=== PATIENT | male | born 1945 | race Caucasian/White ===

== ENCOUNTER 2019-01-25 15:27 | Inpatient (IN) | payer MEDICARE, BC ==
[2019-01-25 17:52] LABS: ADD MAN DIFF? NO
[2019-01-25 17:53] LABS: WHITE BLOOD COUNT 7.2 10^3/ul (4.8-10.8)
[2019-01-25 17:53] LABS: ABNORMAL IP MESSAGE 1; BASOPHILS % 0.1 % (0.0-2.0); EOSINOPHILS % 0.1 % (0.0-7.0); HEMATOCRIT 43.5 % (42.0-52.0); HEMOGLOBIN 14.2 g/dl (14.0-18.0); LYMPHOCYTES # 0.2 10^3/ul (0.8-2.9); LYMPHOCYTES % 3.3 % (15.0-51.0); MEAN CORPUSCULAR HGB CONC 32.6 g/dl (32.0-37.0); MONOCYTE # 0.3 10^3/ul (0.3-0.9); MONOCYTES % 3.6 % (0.0-11.0); NEUTROPHIL # 6.7 10^3/ul (1.6-7.5); NEUTROPHILS % 92.6 % (39.0-77.0); PLATELET COUNT 170 10^3/UL (140-415); RED BLOOD COUNT 4.89 10^6/ul (4.70-6.10); RED CELL DISTRIBUTION WIDTH 13.2 % (11.5-14.5)
[2019-01-25] MEDS: SOD CHLORIDE 0.9% 1,000 ML IV ×2 (17:54→23:34)
[2019-01-25] MEDS: ONDANSETRON 4 MG INJ IV (17:54)
[2019-01-25] MEDS: KETOROLAC 15 MG INJ IV (17:54)
[2019-01-25 18:01] LABS: ALANINE AMINOTRANSFERASE 16 IU/L (13-69); ALBUMIN 3.9 g/dl (3.3-4.9); ALBUMIN/GLOBULIN RATIO 1.39; ALKALINE PHOSPHATASE 49 IU/L (42-121); ANION GAP 8 (5-13); ASPARTATE AMINO TRANSFERASE 31 IU/L (15-46); BILIRUBIN,INDIRECT 0.8 mg/dl (0-1.1); BILIRUBIN,TOTAL 0.8 mg/dl (0.2-1.3); BLOOD UREA NITROGEN 22 mg/dl (7-20); CALCIUM 8.9 mg/dl (8.4-10.2); CARBON DIOXIDE 24 mmol/L (21-31); CHLORIDE 110 mmol/L (97-110); CREATININE 1.64 mg/dl (0.61-1.24); GLUCOSE 125 mg/dl (70-220); LIPASE 54 U/L (23-300); POTASSIUM 4.7 mmol/L (3.5-5.1); SODIUM 142 mmol/L (135-144); TOTAL PROTEIN 6.7 g/dl (6.1-8.1)
[2019-01-25] MEDS: CEFTRIAXONE 1 GM/50 ML (PMX) 50 ML IVPB (20:37)
[2019-01-25 20:48] LABS: ADD UMIC YES; UR ASCORBIC ACID NEGATIVE (NEGATIVE); UR BILIRUBIN (Dip) NEGATIVE (NEGATIVE); UR BLOOD (Dip) 3+ mg/dL (NEGATIVE); UR CLARITY SLIGHTLY CLOUDY (CLEAR); UR COLOR YELLOW (YELLOW); UR GLUCOSE (Dip) NEGATIVE (NEGATIVE); UR KETONES (Dip) TRACE mg/dL (NEGATIVE); UR LEUKOCYTE ESTERASE (Dip) NEGATIVE Leu/ul (NEGATIVE); UR MUCUS FEW /HPF (NONE SEEN); UR NITRITE (Dip) NEGATIVE (NEGATIVE); UR RBC > 182 /HPF (0-5); UR TOTAL PROTEIN (Dip) NEGATIVE (NEGATIVE); UR UROBILINOGEN (Dip) NEGATIVE (NEGATIVE); UR WBC 2 /HPF (0-5)
[2019-01-25] MEDS ORDERED: ONDANSETRON 4 MG INJ IV ×2 (21:00→22:30)
[2019-01-25] MEDS ORDERED: ACETAMINOPHEN 325 MG TAB PO ×2 (21:00→22:30)
[2019-01-25] MEDS ORDERED: ALBUTEROL/IPRATROPIUM (NEB) 3 ML AMP HHN (22:30)
[2019-01-25] MEDS ORDERED: NACL 0.9% 3 ML SYG IV (22:30)
[2019-01-25] MEDS: TAMSULOSIN (SR) 0.4 MG CAP PO (23:34)
[2019-01-26 00:30] LABS: INR 1.02; PARTIAL THROMBOPLASTIN TIME 24.7 Sec (23.0-35.0); PROTIME 13.5 Sec (11.9-14.9); PT RATIO 1.1
[2019-01-26 00:57] LABS: PROSTATE SPECIFIC ANTIGEN 1.1 ng/ml (0.0-4.0)
[2019-01-26 06:26] LABS: ADD MAN DIFF? NO
[2019-01-26 06:30] LABS: WHITE BLOOD COUNT 4.6 10^3/ul (4.8-10.8)
[2019-01-26 06:30] LABS: BASOPHILS % 0.2 % (0.0-2.0); EOSINOPHILS % 0.9 % (0.0-7.0); HEMATOCRIT 36.5 % (42.0-52.0); HEMOGLOBIN 11.9 g/dl (14.0-18.0); LYMPHOCYTES # 0.9 10^3/ul (0.8-2.9); LYMPHOCYTES % 20.1 % (15.0-51.0); MEAN CORPUSCULAR HEMOGLOBIN 28.8 pg (29.0-33.0); MEAN CORPUSCULAR HGB CONC 32.6 g/dl (32.0-37.0); MEAN CORPUSCULAR VOLUME 88.4 fl (82.0-101.0); MEAN PLATELET VOLUME 11.3 fl (7.4-10.4); MONOCYTE # 0.5 10^3/ul (0.3-0.9); MONOCYTES % 9.8 % (0.0-11.0); NEUTROPHIL # 3.1 10^3/ul (1.6-7.5); NEUTROPHILS % 68.6 % (39.0-77.0); PLATELET COUNT 154 10^3/UL (140-415); RED BLOOD COUNT 4.13 10^6/ul (4.70-6.10); RED CELL DISTRIBUTION WIDTH 13.4 % (11.5-14.5)
[2019-01-26 07:04] LABS: ALANINE AMINOTRANSFERASE 17 IU/L (13-69); ALBUMIN 2.8 g/dl (3.3-4.9); ALBUMIN/GLOBULIN RATIO 1.27; ALKALINE PHOSPHATASE 31 IU/L (42-121); ANION GAP 5 (5-13); ASPARTATE AMINO TRANSFERASE 13 IU/L (15-46); BLOOD UREA NITROGEN 24 mg/dl (7-20); CARBON DIOXIDE 25 mmol/L (21-31); CHLORIDE 112 mmol/L (97-110); CREATININE 1.82 mg/dl (0.61-1.24); GLUCOSE 91 mg/dl (70-220); MAGNESIUM 1.9 mg/dl (1.7-2.5); PHOSPHORUS 4.1 mg/dl (2.5-4.9); POTASSIUM 4.6 mmol/L (3.5-5.1); SODIUM 142 mmol/L (135-144)
[2019-01-26 07:35] LABS: CARCINOEMBRYONIC ANTIGEN 0.4 ng/ml (0.0-5.0)
[2019-01-26 07:39] LABS: ALPHA FETOPROTEIN 5.99 IU/L (0.00-7.21)
[2019-01-26] MEDS: HEPARIN 5,000 UNIT/1 ML VIAL SC ×2 (08:29→22:18)
[2019-01-26] MEDS: CEFTRIAXONE 1 GM/50 ML (PMX) 50 ML IVPB (08:45)
[2019-01-26] MEDS: SOD CHLORIDE 0.9% 1,000 ML IV ×2 (08:45→18:05)
[2019-01-26] MEDS ORDERED: IOHEXOL 300MG/ML 30 ML BTL (19:02)
[2019-01-26] MEDS ORDERED: EPHEDrine 25 MG/5 ML SYG (19:30)
[2019-01-26] MEDS ORDERED: LIDOCAINE 2% (SDV) 5 ML INJ (19:32)
[2019-01-26] MEDS ORDERED: PROPOFOL 20 ML (19:32)
[2019-01-26] MEDS ORDERED: MIDAZOLAM 1 MG/ML 2 ML INJ (19:33)
[2019-01-26] MEDS ORDERED: FENTAnyl 50 MCG/ML VIAL (19:33)
[2019-01-26] MEDS ORDERED: CEFAZOLIN 1 GM INJ (19:42)
[2019-01-26] MEDS ORDERED: DEXAMETHASONE 4 MG/ML 5 ML INJ (19:46)
[2019-01-26] MEDS ORDERED: ONDANSETRON 4 MG INJ (19:46)
[2019-01-26] MEDS ORDERED: FAMOTIDINE 20 MG INJ (19:46)
[2019-01-26] MEDS: LIDOCAINE 2% 20 ML UROJET SYRINGE (20:34)
[2019-01-26] MEDS: TAMSULOSIN (SR) 0.4 MG CAP PO (22:16)
[2019-01-27] MEDS: SOD CHLORIDE 0.9% 1,000 ML IV ×2 (04:13→09:20)
[2019-01-27 05:46] LABS: ADD MAN DIFF? NO
[2019-01-27 05:52] LABS: ABNORMAL IP MESSAGE 1; HEMATOCRIT 38.7 % (42.0-52.0); HEMOGLOBIN 12.3 g/dl (14.0-18.0); LYMPHOCYTES # 0.3 10^3/ul (0.8-2.9); LYMPHOCYTES % 8.6 % (15.0-51.0); MEAN CORPUSCULAR HEMOGLOBIN 28.3 pg (29.0-33.0); MEAN CORPUSCULAR HGB CONC 31.8 g/dl (32.0-37.0); MEAN PLATELET VOLUME 11.2 fl (7.4-10.4); MONOCYTE # 0.1 10^3/ul (0.3-0.9); MONOCYTES % 2.1 % (0.0-11.0); PLATELET COUNT 131 10^3/UL (140-415); POSITIVE DIFF @See below; RED BLOOD COUNT 4.35 10^6/ul (4.70-6.10); RED CELL DISTRIBUTION WIDTH 13.7 % (11.5-14.5)
[2019-01-27 05:52] LABS: WHITE BLOOD COUNT 3.4 10^3/ul (4.8-10.8)
[2019-01-27 06:19] LABS: ANION GAP 7 (5-13); BLOOD UREA NITROGEN 25 mg/dl (7-20); CALCIUM 7.9 mg/dl (8.4-10.2); CARBON DIOXIDE 22 mmol/L (21-31); CHLORIDE 110 mmol/L (97-110); CREATININE 1.45 mg/dl (0.61-1.24); GLUCOSE 145 mg/dl (70-220); POTASSIUM 4.8 mmol/L (3.5-5.1); SODIUM 139 mmol/L (135-144)
[2019-01-27] MEDS: CEFTRIAXONE 1 GM/50 ML (PMX) 50 ML IVPB (09:20)
[2019-01-27] MEDS: HEPARIN 5,000 UNIT/1 ML VIAL SC (09:27)
[2019-01-30 20:47] LABS: PSA, FREE 0.3 ng/mL
== END 2019-01-27 15:07 | disposition home or self-care (01) | DRG 661 ==
LOC: E/R 15:27 → PP2 22:13
PROC: 0TC78ZZ Extirpation of Matter from Left Ureter, Via Natural or Artificial Opening Endoscopic (ICD-10-PCS; principal; 2019-01-26 17:00)
PROC: 0T778DZ Dilation of Left Ureter with Intraluminal Device, Via Natural or Artificial Opening Endoscopic (ICD-10-PCS; 2019-01-26 17:00)
DX: N13.2 Hydronephrosis with renal and ureteral calculous obstruction (principal); N40.0 Benign prostatic hyperplasia without lower urinary tract symptoms; D64.9 Anemia, unspecified; K63.9 Disease of intestine, unspecified
CPT/HCPCS: 71045; 74018; 74176; 74430; 80048; 80053; 81001; 82105; 82378; 83690; 83735; 84100; 84153; 84154; 85025; 85610; 85730; 87086; 93005